=== PATIENT | male | born 1965 | race Caucasian/White ===

== ENCOUNTER 2021-10-19 15:22 | Emergency (ER) | payer OTHER ==
[2021-10-19] MEDS ORDERED: methylPREDNISolone NA SUCC 40 MG/1 ML VIAL IVPB ONE (15:27)
[2021-10-19] MEDS ORDERED: methylPREDNISolone NA SUCC 125 MG/2 ML VIAL IVPB ONE (15:27)
[2021-10-19] MEDS ORDERED: FAMOTIDINE 20 MG/50 ML IVPB 20 MG/50 ML MG IVPB ONE (15:28)
[2021-10-19] MEDS ORDERED: methylPREDNISolone NA SUCC 40 MG/1 ML VIAL ONE (15:28)
[2021-10-19 15:32] VITALS: TEMP 99; BMI 44.4
[2021-10-19 16:52] VITALS: BP 122/65
[2021-10-19 16:55] VITALS: PULSE 88
== END 2021-10-19 17:16 | disposition home or self-care (01) ==
LOC: FER 15:22 → SUPCPDRO 15:22 → FER 17:16
PROC: 3E033GC Introduction of Other Therapeutic Substance into Peripheral Vein, Percutaneous Approach (ICD-10-PCS; principal; 2021-10-19)
DX: T78.40XA Allergy, unspecified, initial encounter (principal)
CPT/HCPCS: 99284-25

== ENCOUNTER 2023-10-11 04:02 | Day surgery (SDC) | payer OTHER ==
[2023-10-07 12:06] VITALS: BMI 47.9
[2023-10-11 10:11] VITALS: TEMP 97.7
[2023-10-11 10:48] VITALS: PULSE 78
[2023-10-11 10:49] VITALS: BP 117/76; RESP 20
== END 2023-10-11 11:07 | disposition home or self-care (01) ==
LOC: JASU-ENDO 04:02
PROVIDERS: ATTEND Internal Medicine Gastroenterology
PROC: 0DBK8ZX Excision of Ascending Colon, Via Natural or Artificial Opening Endoscopic, Diagnostic (ICD-10-PCS; 2023-10-11)
PROC: 0DBH8ZX Excision of Cecum, Via Natural or Artificial Opening Endoscopic, Diagnostic (ICD-10-PCS; 2023-10-11)
PROC: 0DBL8ZX Excision of Transverse Colon, Via Natural or Artificial Opening Endoscopic, Diagnostic (ICD-10-PCS; principal; 2023-10-11 09:00)
DX: Z12.11 Encounter for screening for malignant neoplasm of colon (principal); D12.2 Benign neoplasm of ascending colon; D12.3 Benign neoplasm of transverse colon; K64.8 Other hemorrhoids; Z80.0 Family history of malignant neoplasm of digestive organs
CPT/HCPCS: 88305-TC